=== PATIENT | female | born 1970 | race Caucasian/White ===

== ENCOUNTER 2018-07-08 07:22 | Day surgery (SDC) | payer OTHER, SELFPAY ==
[2018-07-08] VITALS (7 sets, daily range): BP systolic 118–151; BP diastolic 74–88; PULSE 62–78; RESP 16–18; TEMP 36.1–37; O2SAT 97–100; BMI 35.5
[2018-07-08 08:21] LABS: Bedside Glucose 244 mg/dL (70-110)
[2018-07-08] MEDS: Cefazolin 2 GM in 0.9% Normal Saline 100 ML IV (08:26)
--- NOTE | 2018-07-08 08:43 | RAD_ITS ---
STUDY: X-RAY - ABDOMEN/PELVIS REASON FOR EXAM: Female, 48 years old. InterStim therapy TECHNIQUE: A single fluoroscopic spot view of the sacrum is provided. COMPARISON: None. FINDINGS: A metallic stimulator projects over the left side of the sacrum. RAD/Abdomen Single View IMPRESSION: Intraoperative fluoroscopy provided. Electronically Signed: Michelet Cordova DO at 9:34 EDT Tel , Service support ,
--- NOTE | 2018-07-08 09:18 | DCINST_ITS ---
Discharge Diet: Light diet - advance as tolerated Discharge Activity: May Not Drive May shower in (days): 1 Call your doctor if your incision/area has: Continuous Slow Oozing, Sudden Increased Bleeding, Increased Pain/ Swelling, Increased Redness, Foul Smelling Discharge, Swelling at the incision site Allergies/Adverse Reactions: Allergies enalapril Adverse Reaction (Verified 07/01/18 11:06) Other COUGH metformin [From Glucophage] Adverse Reaction (Verified 07/01/18 11:06) Other Medications to take at Discharge Insulin Lispro [Humalog KwikPen] 0 unit SQ PRN PRN 07/01/18 Losartan Potassium [Cozaar] 100 mg PO DAILY 07/01/18 Vilazodone Hydrochloride [Viibryd] 40 mg PO DAILY 07/01/18 Cephalexin [Keflex] 500 mg PO Q8 #15 cap 07/08/18 Hydrocodone/Acetaminophen [[place] 5-325 Tablet] 1 ea PO Q6H PRN PRN 5 Days #10 tab 07/08/18 The following prescriptions were given: Hydrocodone/Acetaminophen [Clarence 5-325 Tablet] 1 ea PO Q6H PRN PRN 5 Days #10 tab PRN Reason: Pain Cephalexin [Keflex] 500 mg PO Q8 #15 cap Primary Care Physician: iGrish Marcus MD [Primary Care Provider] - Test Results: Test results from this visit will be discussed in further detail at your follow- up appointment, if applicable. Please Follow Up With: Malik Garcia MD When: please call to make an appointment.
--- NOTE | 2018-07-08 09:18 | PCM.OPRPT ---
Report of Operation Date of Procedure: 07/08/18 Pre-Operative Diagnosis: Urge incontinence, frequency, urgency, fecal incontinence Post-Operative Diagnosis: Same Surgery/Procedure Performed:: Stage I InterStim implant Description of Surgical Findings:: 48-year-old female with severe overactive bladder symptoms and has tried several medications with very little improvement she also has fecal incontinence but it does have a history of colitis talked about the options of management and she wants to proceed with a stage I InterStim implant to see if InterStim therapy will help her bladder control. 48-year-old female taken back to the operating room at the smooth induction of anesthesia she was placed facedown on the table in a prone position the lower back and buttocks and sacrum was prepped and draped in usual sterile fashion we then came in with fluoroscopy identified the sacrum identified the first second and third S foramen under fluoroscopy we laid down her needles and then we identified the tips of the initial spine running across went 2 cm above this on the markings of the skin came down with the needle and dropped into the S3 foramen. We then checked for stimulation we had good james and we had toe response as well no ankle rotation. We then advanced the stylette through the needle made an incision in the skin and then advanced the sheath over the stylette so that the marker was between the anterior posterior plate of the sacrum we then advanced a curved implant through the sheath until the tines were exposed we checked 012 and 3 leads and we had good james response on 1 2 and 3 3, and 0 we only had some toe but no james. After getting 3 or 4 of the leads in good position we then pulled back on the sheath the deployed the tines lead was left in place we then tunneled the lead to a small pocket in the patient's left lower back below the crest of the ischium, we then applied clean the lead and then we put the boot on and up with a temporary extension of the lead and then we tunneled the lead from the small pocket to the exit point for the temporary extension lead. Once the temporary extension lead was was completed then we closed the incision over the placement of the needle in the tailbone and then we closed the pocket. And then we applied bandages and dressings to the all the incisions we closed the incisions with interrupted subcuticular Vicryl. The stage I lead stimulator was placed we checked with fluoroscopy save the image and it would appear to be in good position will do a trial stimulation and if successful we will have the patient come back for implant of stage II. Type of Anesthesia:: Local MAC Drains: none - Admit VTE Documentation VTE Present on Admission: No VTE Mechan Device Prophylaxis: SCD's
--- NOTE | 2018-07-08 11:33 | SUR.PHASEII ---
stich inserted per dr walker- pt star well. redressed with 4x4 guaze and opsite
== END 2018-07-08 11:37 | disposition home or self-care (01) ==
LOC: SDC 07:25 → AC 07:25
PROVIDERS: Family Provider Family Medicine; PCP Family Medicine; Visit Provider Urology
PROC: (CPT 64590; principal; 2018-07-08 08:30)
DX: N39.41 Urge incontinence (principal); R15.9 Full incontinence of feces; N32.81 Overactive bladder; E66.9 Obesity, unspecified; F32.9 Major depressive disorder, single episode, unspecified; R35.0 Frequency of micturition; N39.3 Stress incontinence (female) (male); Z68.33 Body mass index [BMI] 33.0-33.9, adult
CPT/HCPCS: 64590; 74018; 76000; 82962; J7120; C1778

== ENCOUNTER 2018-07-22 13:31 | Day surgery (SDC) | payer OTHER, SELFPAY ==
[2018-07-22] VITALS (7 sets, daily range): BP systolic 119–140; BP diastolic 74–89; PULSE 68–96; RESP 16–18; TEMP 36.4–37.1; O2SAT 94–98; BMI 34.4
[2018-07-22 13:56] LABS: Bedside Glucose 228 mg/dL (70-110)
[2018-07-22] MEDS: Cefazolin 2 GM in 0.9% Normal Saline 100 ML IV (14:30)
--- NOTE | 2018-07-22 14:31 | PCM.DC.URO ---
Discharge Diet: Light diet - advance as tolerated Discharge Activity: Return to Normal Activity May shower in (days): 1 Call your doctor if your incision/area has: Continuous Slow Oozing, Sudden Increased Bleeding, Increased Pain/ Swelling, Increased Redness, Foul Smelling Discharge, Swelling at the incision site Allergies/Adverse Reactions: Allergies enalapril Adverse Reaction (Verified 07/01/18 11:06) Other COUGH metformin [From Glucophage] Adverse Reaction (Verified 07/01/18 11:06) Other Medications to take at Discharge Insulin Lispro [Humalog KwikPen] 0 unit SQ PRN PRN 07/01/18 Losartan Potassium [Cozaar] 100 mg PO DAILY 07/01/18 Vilazodone Hydrochloride [Viibryd] 40 mg PO DAILY 07/01/18 Cephalexin [Keflex] 500 mg PO Q8 #15 cap 07/08/18 Hydrocodone/Acetaminophen [[place] 5-325 Tablet] 1 ea PO Q6H PRN PRN 5 Days #10 tab 07/08/18 Cephalexin [Keflex] 500 mg PO TID #12 cap 07/22/18 The following prescriptions were given: Cephalexin [Keflex] 500 mg PO TID #12 cap Primary Care Physician: Girish Marcus MD [Primary Care Provider] - Test Results: Test results from this visit will be discussed in further detail at your follow-up appointment, if applicable. Please Follow Up With: Malik Garcia MD When: August 04 at 4 pm
--- NOTE | 2018-07-22 14:58 | PCM.OPRPT ---
Report of Operation Date of Procedure: 07/22/18 Pre-Operative Diagnosis: Overactive bladder frequency of urination urgency of urination urge incontinence and also fecal incontinence Post-Operative Diagnosis: same Surgery/Procedure Performed:: Stage II InterStim therapy implant Description of Surgical Findings:: 48-year-old female taken back to the operating room after smooth induction of anesthesia she was placed facedown in the prone position she had a stage I lead placed for InterStim therapy which was successful she had reported good control of her urine on his father's side with the results with significant subjective and objective improvement nephrogram he can proceed with stage II placement of the generator.. 48-year-old female taken back to the operating room at the smooth induction of anesthesia she was placed prone on the table the lower right back and sacral area was prepped the prior bandages were removed the temporary lead was straightened out I took some stitches out of the skin in the in the midline in the back we removed the bandages over the temporary pocket. I then infiltrated the skin over the temporary pocket made an incision in the skin and then dissected into the pocket. Until I encountered the lead extension with a temporary boot and a temporary extension the stitches in the bruit were excised and removed the boot was removed the temporary extension was then cut and the free end was was removed the lead was then inspected there was no damage or injury to the lead, and the lead was cleaned the pocket was then opened up slightly larger a space was created for the generator and the pocket then the new generator was placed into the lead until all blue is showing we tightened out tightened down the lead using the bolt provided in the kit to be at 2 clicks then the the generator was placed into the pocket with the signature [employer] side facing up and then once in good position there we then tested for impedances and there was no impedances in the generator was deemed to be functioning properly. We then closed the subcuticular stitches with interrupted Vicryl and then we closed the skin with interrupted 4-0 Monocryl bandages were placed Dermabond glue was placed on the incision site patient's anesthetic was reversed and she was taken back to the PACU in good condition she will follow-up in the office in a few weeks for checkup. Type of Anesthesia:: Local MAC Drains: none - Admit VTE Documentation VTE Present on Admission: No VTE Mechan Device Prophylaxis: SCD's
[2018-07-22] MEDS: Acetaminophen 325 MG Tablet 650 MG PO (16:37)
== END 2018-07-22 17:31 | disposition home or self-care (01) ==
LOC: SDC 13:31 → AC 13:32
PROVIDERS: Family Provider Family Medicine; PCP Family Medicine; Visit Provider Urology
PROC: (CPT 64590; principal; 2018-07-22 14:45)
DX: N32.81 Overactive bladder (principal); R35.0 Frequency of micturition; R15.9 Full incontinence of feces; E66.9 Obesity, unspecified; F32.9 Major depressive disorder, single episode, unspecified; N39.3 Stress incontinence (female) (male); I10 Essential (primary) hypertension; E11.9 Type 2 diabetes mellitus without complications; Z68.34 Body mass index [BMI] 34.0-34.9, adult; Z87.440 Personal history of urinary (tract) infections
CPT/HCPCS: 00300; 64590; 82962; J7120; C1767

== ENCOUNTER 2018-08-31 16:15 | Emergency (ER) | payer OTHER, SELFPAY ==
[2018-08-31 16:16] VITALS: BP 162/82; PULSE 68; RESP 16; TEMP 37.3; O2SAT 98; BMI 35.2
--- NOTE | 2018-08-31 16:35 | ED.VISSUMM ---
- ER Visit Summary Date of Service: 08/31/18 Chief Complaint: Controlled blood sugars and headache. History of Present Illness: The patient is a 48 F diabetic with hypertension and depression. States that her blood sugars are poorly controlled. She is also developed a headache today around 130. States the headache is not top of her head and frontal. She denies any weakness to her upper or lower extremities. She denies any speech changes. She is on no blood thinners. States she has chronic nausea from colitis but denies any vomiting, diarrhea or fever. No dysuria. Physical Examination: Middle-aged female no acute distress vital signs are stable afebrile. She does not look septic or toxic. HEENT exam unremarkable. Neck nontender. Lungs clear to auscultation bilaterally. Heart regular rate and rhythm no murmur. Abdomen soft nontender. He is moving all 4 extremities. They are neurovascularly intact. Calves are nontender without edema or cords. Neurologically she is awake and alert with no focal motor deficits. NIH score is 0. Bilateral equal symmetrical 5 out of 5 bowling ball grader strength. Dorsi plantar flexion intact. Fingertip to nose heel to garcia within normal limits. No facial droop. Normal speech. Test Results: CT brain no acute abnormality is read by the radiologist and reviewed by me. White count 9. Hemoglobin 11.6. Electrolytes unremarkable normal creatinine normal gap. Glucose 192. Repeat exam at 1915 patient is doing well. She does request something for headache she will be given IV Toradol. She also asked me to look at her left buttock she was concerned she is developing a cyst or early abscess. On the left buttock mid region there is an area that is firm indurated tissue about the size of a quarter. There is no fluctuance. There is no redness or warmth. This may be an early abscess. I did explain to her that there is nothing to drain at this time. She will be started on p.o. antibiotics. Emergency Department Course and Treatment: With IV fluids. Screening labs and a CT of her brain. Treatment Plan: Tylenol for the headache. Watch blood sugars closely. Warm soaks to the left buttock and if it gets larger it may need incise and drain. Keflex 4 times daily for 10 days. Disposition: Discharge Impression: Acute hyperglycemia with a history of insulin dependent diabetes Acute cephalgia Left buttock abscess This note was generated with [employer] dictation software. It may contain incorrect words, spelling, and punctuation that were not noted in review of the chart prior to signing ED Disposition - Plan for ED Patient: Chief Complaint: Headache Referrals: Girish Marcus MD [Primary Care Provider] -
[2018-08-31 16:51] LABS: Bedside Glucose 189 mg/dL (70-110)
[2018-08-31] MEDS: 0.9% Normal Saline 1,000 ML 1000 ML IV (16:56)
[2018-08-31 17:18] LABS: Absolute Lymphocyte Count 2.44 X10^3/ul (0.83-4.51); Absolute Neutrophil Count 6.2 X10^3/uL (2.0-7.7); Basophil# 0.03 X10^3/uL; Basophil% 0.3 % (0-1); Eosinophil# 0.19 X10^3/uL; Hematocrit 35.2 % (37-47); Hemoglobin 11.6 g/dl (12.0-15.0); Lymphocyte # 2.44 X10^3/ul (4.0); Lymphocyte % 25.5 % (19-41); Mean Corpuscular Hgb 28.3 pg (27.0-32.0); Mean Corpuscular Volume 85.9 fL (81-99); Mean Platelet Vol. 10.1 fl (6.2-12.0); Monocyte# 0.71 X10^3/uL; Monocyte% 7.4 % (0-10); Neutrophil % 64.7 % (47-70); Platelet Count 252 K/mm3 (150-450); RBC Distribution Width CV 12.9 % (11.6-14.6); RBC Distribution Width SD 40.1 fl (35.1-43.9); White Blood Count 9.6 K/mm3 (4.4-11.0)
[2018-08-31 17:22] LABS: Anion Gap 7 (5-15); BUN 10 mg/dL (7-18); BUN/Creat Ratio 13.5 RATIO (10-20); Calcium,Total 8.9 mg/dL (8.5-10.1); Chloride 98 mmol/L (98-107); Creatinine, Serum 0.74 mg/dL (0.55-1.02); EST Glomerular Filtration Rate 89 mL/min (>60); Est Glom Filt Rate - Afr Amer 107 mL/min (>60); Estimated Creatinine Clearance 76.07 ml/min; Glucose 192 mg/dL (74-106); Potassium 3.5 mmol/L (3.5-5.1); Sodium Level 134 mmol/L (136-145)
[2018-08-31 17:26] LABS: POSITIVE COUNT NO; POSITIVE DIFFERENTIAL NO; POSITIVE MORPHOLOGY NO
--- NOTE | 2018-08-31 17:28 | CT_ITS ---
STUDY: CT BRAIN WITHOUT CONTRAST REASON FOR EXAM: Female, 48 years old. Headache RADIATION DOSAGE (If Supplied By Facility): CTDIvol = ( 44.99 ) mGy, DLP = ( 779.24 ) mGycm TECHNIQUE: Transaxial CT imaging of the brain was performed without administration of intravenous contrast material. Individualized dose optimization techniques were used for this CT. COMPARISON: None. FINDINGS: There is no acute bleed or infarct. There are normal white matter tracts. The ventricles are normal in configuration. There is no hydrocephalus. The visualized paranasal sinuses are clear. The mastoid air cells are well aerated. There is no skull fracture. CT/Brain/Head without Contrast IMPRESSION: No acute intracranial abnormality. Electronically Signed: Girish Eldridge, at 17:43 EDT Tel , Service support ,
[2018-08-31] MEDS: Ondansetron 8 MG Tablet PO (19:17)
--- NOTE | 2018-08-31 19:17 | ED.DEP ---
ED Disposition - Plan for ED Patient: Disposition: Home or Assisted Living Chief Complaint: Headache Instructions: ED Cephalgia Unspecified, ED Staph Infec Abx Tx Only Prescriptions: Cephalexin [Keflex] 500 mg PO 4X/DAY #40 cap Referrals: Girish Marcus MD [Primary Care Provider] - 3-5 Days if not improving Additional Instructions: Tylenol and Motrin for headache. Plenty fluids and rest. Next para Left buttock early abscess nothing to incise and drain at this time. The antibiotic Keflex 1 pill 4 times a day plus warm soaks. If this area gets a lot larger return to have it drained.
[2018-08-31] MEDS: Ketorolac 30 MG/ML Syringe IV (19:19)
[2018-08-31 19:21] VITALS: BP 135/79; PULSE 69; RESP 16; O2SAT 99
[2018-08-31] MEDS: Cephalexin 250 MG Capsule 500 MG PO (19:28)
[2018-08-31 19:30] VITALS: BP 135/79; PULSE 69; RESP 16; O2SAT 98
== END 2018-08-31 19:43 | disposition home or self-care (01) ==
PROVIDERS: Emergency Provider Emergency Medicine; Family Provider Family Medicine; PCP Family Medicine
DX: R51 Headache (principal); L02.31 Cutaneous abscess of buttock; E11.65 Type 2 diabetes mellitus with hyperglycemia; Z79.4 Long term (current) use of insulin; I10 Essential (primary) hypertension
CPT/HCPCS: 70450; 80048; 82962; 85025; 99285; J7030

== ENCOUNTER 2020-09-10 11:05 | Day surgery (SDC) | payer OTHER, SELFPAY ==
[2020-09-10] VITALS (10 sets, daily range): BP systolic 142–163; BP diastolic 80–95; PULSE 59–80; RESP 14–18; TEMP 36.2–36.8; O2SAT 94–100; BMI 25.5
--- NOTE | 2020-09-10 07:42 | HP.PCM_ITS ---
History and Physical Date of Admission: 09/10/20 HISTORY AND PHYSICAL ? Maty Tenorio 1970 ? ? REFERRING PHYSICIAN: Self ? CHIEF COMPLAINT: Vomiting and Diarrhea ? HPI: The patient is a 50 year old female presents with complaint of right upper quadrant abdominal pain and nausea and emesis. She is more concerned about the nausea and emesis. She denies weight loss. She states that is not related to foods that she eats. She denies fevers. This started about two weeks ago. She was seen in the ED at [facility]. She underwent workup with US of the gallbladder for her abdominal pain which revealed a possible tiny stone versus polyp. She then had a HIDA scan which revealed an EF of 28%. Her past gastrointestinal history is that she had been seen by Dr. Jamil in the past for lymphocytic colitis, but states that diarrhea controlled with intermittent immodium. ? ? PAST MEDICAL HISTORY Diagnosis Date ? ADD (attention deficit disorder) ? ? Colitis ? ? Depressive disorder, not elsewhere classified ? ? Diabetes (HCC) ? ? Hypertension ? ? Other and unspecified hyperlipidemia ? ? PAST SURGICAL HISTORY Procedure Laterality Date ? DELIVERY ONLY ? 2005 ? , low cervical ? COLONOSCOP W/ OR W/O [facility] SPEC ? 11/13/13 ? ? Pilonidal cyst surgery ? ? Current Outpatient Medications Medication Sig ? LOSARTAN POTASSIUM (COZAAR ORAL) Take by mouth once daily. ? INSULIN ASPART (NOVOLOG FLEXPEN SUBCUTANEOUS) Inject subcutaneously. sliding scale ? diphenoxylate-atropine (LOMOTIL) 2.5-0.025 mg per tablet Take 2 tablets by mouth four times daily as needed. ? dicyclomine (BENTYL) 20 mg tablet Take 1 tablet by mouth three times daily before meals. ? buPROPion XL (WELLBUTRIN XL) 300 mg 24 hr tablet Take 300 mg by mouth once daily. ? Amphetamine-Dextroamphetamine (ADDERALL) 30 mg tablet Take 30 mg by mouth once daily. ? methylphenidate (RITALIN) 10 mg tablet Take 10 mg by mouth as needed. ? liraglutide (VICTOZA) 0.6 mg/0.1 mL (18 mg/3 mL) pnij Inject 0.6 mg subcutaneously once daily. ? ? ALLERGIES: effexor, Enalapril and Metformin ? PERSONAL HISTORY: Social History ? Tobacco Use ? Smoking status: Never Smoker Substance Use Topics ? Alcohol use: Yes ? ? Comment: Occasional ? Drug use: No ? FAMILY HISTORY Problem Relation Age of Onset ? Heart Mother ? ? Heart Brother ? ? Breast Cancer Mother ? ? Diabetes Mother ? ? other (IBS [Other]) Mother ? ? other (CHF [Other]) Mother ? ? other (Fibromyalgia [Other]) Mother ? ? other (fibromyalgia [Other]) Sister ? ? other (Thyroid cancer [Other]) Sister ? ? ? REVIEW OF SYSTEMS: General - denies fevers, denies anorexia, denies weight loss Cardiovascular - denies chest pain, denies history of DC Pulmonary - denies shortness of breath, denies coughing up blood Gastrointestinal - denies abdominal pain, denies hematemesis, denies blood in stools Neurological - has neuropathy and taking gabapentin for this, denies seizures, denies chronic numbness/weakness of extremities Genitourinary - denies burning with urination, denies blood in urine Hematological - denies spontaneous/prolonged bleeding Skin - denies nonhealing skin wounds Musculoskeletal - has chronic low back pain otherwise no new muscle/bone pain Endocrine - has diabetes, no thyroid problems Psychological ? denies illicit drug use, denies hallucinations ? PHYSICAL EXAMINATION: General: The patient is 50 year old female, well nourished, well hydrated in no acute distress. The patient is oriented to time, place, and person. VITALS: Blood pressure 142/68, pulse 98, temperature 36.4 ?C (97.6 ?F), temperature source Temporal, resp. rate 18, Ht: 5'3 weight 68 kg (150 lb), last menstrual period 10/29/2015, SpO2 97 %. Body mass index is 26.57 kg/m?. Head ? Normocephalic. EOM intact with sclera clear and no icterus noted. Mouth with mucus membranes moist. Neck - supple with no jugular venous distention noted. Trachea is midline. Lungs ? clear to auscultation. Normal breath sounds. No rales/rhonchi/wheezing noted. No labored breathing noted, such as retractions. No cough heard. Heart ? normal S1 and S2 auscultated. No rubs/clicks/murmurs noted. Regular rate. Abdomen ? soft and benign. Normal bowel sounds. No abdominal bruits noted. Extremities ? no calf tenderness noted. No pitting edema noted. Skin ? normal skin integrity. Neurological ? gait normal, no focal deficits noted. Psych ? calm and appropriate RADIOLOGIC STUDIES: As Noted ? ? IMPRESSION: nausea and emesis, right upper quadrant abdominal pain, abnormal HIDA scan ? PLAN: I have discussed the above with the patient. I have offered the patient the procedure of laparoscopic cholecystectomy, possible cholangiograms. I have explained the procedure to the patient. I have counseled the patient as to the risks of the procedure, including but not limited to: infection, bleeding, injury to any blood vessels/nerves, scar tissue, injury to any intrabdominal organs, injury to kidney/ureters, injury to bowel/bladder, injury to the common bile duct/biliary tree, bile leakage, intraabdominal abscess/bleeding, hernias at incisional sites, wound infections, possible open procedure, complications of anesthesia, postoperative pneumonia/cardiac problems/blood clots etc. the patient understands. ? ? The patient was offered a surgery/procedure. The provider and patient have discu ssed in detail the risk of exposure to and/or potential harm posed by the COVID- 19 virus with having a surgery/procedure at this time versus the risk of? delaying the surgery/procedure. It is not possible to know either the risk of delaying the surgery or procedure or chance of getting an infection with perfect accuracy, but a joint decision was made between the patient and the provider ?to proceed at this time with the scheduled surgery/procedure. ? The patient wishes to proceed. ? I have answered all questions to the patient?s satisfaction and the patient has no further questions. . Diagnoses: (R11.2) Nausea and vomiting, intractability of vomiting not specified, unspecified vomiting type (primary encounter diagnosis) (R10.11) RUQ abdominal pain (R94.8) Abnormal biliary HIDA scan (K52.832) Lymphocytic colitiss. ? Tegan Iraheta MD
--- NOTE | 2020-09-10 11:32 | EKG12_ITS ---
Test Reason : PREOP Blood Pressure : / mmHG Vent. Rate : 070 BPM Atrial Rate : 070 BPM P-R Int : 128 ms QRS Dur : 070 ms QT Int : 404 ms P-R-T Axes : 065 -13 053 degrees QTc Int : 436 ms Normal sinus rhythm Normal ECG Confirmed by DIEUDONNE GONZALEZ, BEAU ([id number]), editor map MARTIN MARC ([id number]) on 09/12/2020 10:27:32 AM Referred By: Tgean Iraheta Confirmed By:BEAU BRO MD
[2020-09-10] MEDS: Lactated Ringers 1,000 ML 75 ML IV ×2 (12:22→15:25)
--- NOTE | 2020-09-10 13:15 | GALL_PTH ---
PATIENT: GENIE BARRIENTOS [place] [facility] [id number] AGE/SX: 50/F ROOM: RE09/10/[address]: Dr. Tegan Iraheta MD : 1970 BED: DIS: 09/10/2020 SPEC #: [id number] RECD: 09/10/20 14:56 STATUS: DAMIAN SHIRA #: [id number] AGUS: 09/10/20 13:[address]: Tegan Iraheta DEPT: SURGICAL PATHOLOGY RECD BY: Vitaliy Thompson ENTERED: 09/11/20 07:02 SP TYPE: MOLLY MERCADO DR: Dr. Girish Marcus MD Tissues: Gallbladder, NOS Procedures: Surgery Specimen Level III HEADER OPERATION: Laparoscopic cholecystectomy with IOC PRE-OP DIAGNOSIS: RUQ abdominal pain, abnormal HIDA scan TISSUE SUBMITTED: Gallbladder MICROSCOPIC DIAGNOSIS Gallbladder, cholecystectomy: Mild chronic cholecystitis and focal cholesterolosis. A pericystic lymph node with reactive changes. No stones are identified in the container or in the gallbladder. NADIRA:ulysses 09/12/20 MICROSCOPIC DESCRIPTION Slides are reviewed. GROSS DESCRIPTION Received is one container labeled with the patient's name and designated gallbladder. The specimen consists of a gallbladder measuring 9 cm in length and up to 3 cm in diameter. The external surface is pink-crisostomo, smooth and glistening for the most part. Focally it is granular, hemorrhagic and contains cautery artifact. The gallbladder contains green-yellow mucoid bile. No stones are identified in the container or in the gallbladder. The mucosa is bile-stained and without any mass lesions. The gallbladder wall measures up to 0.2 cm in thickness. Globe Cleaner sections from the gallbladder and the cystic duct are submitted in one cassette. / NADIRA:ulysses 09/11/20 TC:3 [facility]: [id number]
[2020-09-10 13:46] LABS: Bedside Glucose 118 mg/dL (70-110)
--- NOTE | 2020-09-10 13:51 | DCINST_ITS ---
Discharge Diet: No Restrictions - drink plenty of liquids, avoid carbonated beverages as they may cause bloating which may add to discomfort/pain after surgery Discharge Activity: Return to Normal Activity, May not drive while taking narcotic pain medications. Lifting Restrictions: no lifting greater than 20 pounds Call your doctor if your incision/area has: Continuous Slow Oozing, Foul Smelling Discharge Call your doctor if you observe: Fever of 101 or Higher Additional Instructions: Recommended pain control regimen - May take 600 mg ibuprofen (Motrin) and then in 3-4 hours, may take 650 mg acetaminophen (Tylenol), then in 3-4 hours may take 600 mg ibuprofen, then in 3- 4 hours may take 650 mg acetaminophen and so on for 2-3 days May take narcotic pain medication for pain that is not controlled by above and at night for comfort through the night Leave dressings in place May get dressings wet in shower - do not scrub in the area and pat dry Do not soak - no tub baths/swimming If dressing appears to be soiled/open at one end/no longer sealed - may remove dressing but leave site uncovered (do not replace with any type of dressing) - leave steristrips in place - may get wet but do not scrub in the area and pat d ry Allergies/Adverse Reactions: Allergies enalapril Adverse Reaction (Verified 09/10/20 11:36) Other COUGH metformin [From Glucophage] Adverse Reaction (Verified 09/10/20 11:36) Other Medications to take at Discharge Losartan Potassium [Cozaar] 100 mg PO DAILY 07/01/18 Vilazodone Hydrochloride [Viibryd] 40 mg PO DAILY 07/01/18 Dextroamphetamine/Amphetamine [Adderall Xr 30 mg Capsule] 30 mg PO DAILY 09/09/20 Dicyclomine HCl [Bentyl] 10 mg PO TID 09/09/20 Diphenoxylate/Atrop [Lomotil] 2 tab PO 4X/DAY PRN PRN 09/09/20 Semaglutide [Ozempic] 1 mg SQ QWEEK 09/09/20 Hydrocodone Bitart/Apap 5-325 [Lindsay 5MG-325MG] 1 tab PO Q8H PRN PRN 5 Days #15 tab 09/10/20 The following prescriptions were given: Hydrocodone Bitart/Apap 5-325 [Lindsay 5MG-325MG] 1 tab PO Q8H PRN PRN 5 Days #15 tab PRN Reason: Pain Transmission Status: Received by KRISTINE ONE[address] Primary Care Physician: Girish Marcus MD [Primary Care Provider] - Test Results: Test results from this visit will be discussed in further detail at your follow- up appointment, if applicable. Please Follow Up With: Tegan Iraheta MD - call When: to be seen in 1-2 weeks, please call for a date and time, thank you
--- NOTE | 2020-09-10 13:53 | OP.PCM_ITS ---
Report of Operation Date of Procedure: 09/10/20 Pre-Operative Diagnosis: RUQ abdominal pain, abnormal HIDA scan Post-Operative Diagnosis: same Surgery/Procedure Performed:: laparoscopic cholecystectomy with cholangiograms Description of Surgical Findings:: normal cholangiogram, some adhesions to free surface of the gallbladder mortgage loan counselor: Nathalie Mackey Type of Anesthesia:: General Anesthesiologist: Dianelys Villareal Specimen's removed: gallbladder and contents Estimated Blood Loss (mL): < 5 ml Fluids Replaced: 1000 ml RL Description of Procedure: After informed consent was given, the patient was brought to the Operating Room. Appropriate time out protocol was followed. The patient was placed in the supine position. The patient was then placed under general endotracheal anesthesia by the anesthesia provider. The abdomen was then prepped with a sterile surgical skin preparation and sterile surgical drapes were placed. An area superior to the umbilical dimple was grasped with penetrating clamps and the skin and subcutaneous tissues were infiltrated with 0.25% marcaine with epinephrine. A skin incision was then made with a 15 blade scalpel. The anterior abdominal wall was elevated and a Veress needle was carefully inserted into the intraabdominal cavity. It was checked to be in the proper position with a normal saline drop test. A CO2 pneumoperitoneum was then created. Once this was achieved, then the Veress needle was removed and an 11mm trocar was placed in its stead. A 10mm laparoscope was then inserted into the trocar and careful attention was directed to the intraabdominal contents. There was no evidence of injury to any intraabdominal organs from insertion of the Veress needle or the trocar. Under direct visualization, a 5mm subxiphoid trocar and two lateral 5mm right subcostal trocars were placed. The skin and subcutaneous tissues at these sites were infiltrated with 0.25% marcaine with epinephrine prior to placement of these trocars. Attention was then directed to the right upper quadrant of the abdomen. Graspers were placed in the lateral trocars to grasp the distal aspect of the gallbladder and direct it cephalad and to grasp the gallbladder at Juárez?s pouch and direct it laterally. There were some adh esions to the free surface of the gallbladder and these were taken down by sharp dissection. Any bleeding was controlled with electrocoagulation. Dissection then began on the proximal gallbladder continuing down to the area of the triangle of Calot to bluntly dissect out the cystic duct. The neck of the gallbladder was identified and blunt dissection continued to dissect out a segment of the cystic duct. A clip was then placed on the neck of the gallbladder. A small ductotomy was then made. A Ranfac catheter was brought in through a separate skin incision and placed into the cystic duct. An intraoperative cholangiogram was performed under fluoroscopy. The xray revealed no lesions in the common bile duct, arborization of the biliary tree, and good flow into the duodenum. The Ranfac catheter was then removed and two clips were placed proximal to the ductotomy and the cystic duct was then transected. The cystic artery was visualized and bluntly isolated and then two clips were placed proximally and one clip distally and then it was transected between the proximal and distal clips. The gallbladder was then from the liver bed using electrocautery. Once from the liver bed, it was brought out via the umbilical port. It was then forwarded to pathology for analysis. The liver bed was carefully examined. There was no evidence of bile leakage or bleeding. The cystic duct stump and cystic artery stump had their clips intact and there was no evidence of bile leakage or bleeding. The remainder of the abdomen was grossly normal. The CO2 was released and all trocars removed intact. The periumbilical fascia was approximated with a [id number] 0 vicryl suture. All skin incision were closed with 4-0 monocryl in a subdermal fashion. Cavilol and Steristrips were used to reinforce the skin closure. Sterile dressings were applied to all wounds. Sponge, needle and instrument count was verified and correct at time of skin closure. The patient was extubated and brought to the Recovery Room in stable condition. - Complications none noted - Admit VTE Documentation VTE Present on Admission: Yes VTE Mechan Device Prophylaxis: SCD's
[2020-09-10] MEDS: Cefazolin 2 GM in 0.9% Normal Saline 100 ML IV (13:59)
--- NOTE | 2020-09-10 14:17 | RAD_ITS ---
STUDY: INTRAOPERATIVE CHOLANGIOGRAM. REASON FOR EXAM: Female, 50 years old. PAIN FLUOROSCOPY TIME (if supplied): ( 3.3 seconds ) minutes/seconds. One image was submitted. TECHNIQUE: Intraoperative cholangiogram was performed by the surgeon. Imaging was submitted. COMPARISON: None. FINDINGS: The visualized intrahepatic biliary ducts are unremarkable. The common bile duct is not dilated. No intraluminal filling defect is seen. There is free flow of contrast into the duodenum. RAD/Cholangiogram/ O R,Initial IMPRESSION: Unremarkable intraoperative Cholangiogram. Electronically Signed: Carlton Aquino, at 8:14 EDT , Service support ,
[2020-09-10] MEDS: Bupiv/Epi 0.25% 30 ML Vial (14:40)
[2020-09-10 15:46] LABS: Bedside Glucose 163 mg/dL (70-110)
[2020-09-10] MEDS: HYDROcodone Bitartrate/Apap 5/325 Tablet PO (17:27)
== END 2020-09-10 18:06 | disposition home or self-care (01) ==
LOC: SDC 11:11 → AC 11:12
PROVIDERS: PCP Family Medicine; Referring Provider Surgery; Visit Provider Surgery
PROC: (CPT 47610; principal; 2020-09-10 12:55)
DX: K81.1 Chronic cholecystitis (principal); R94.8 Abnormal results of function studies of other organs and systems; K52.832 Lymphocytic colitis; R10.11 Right upper quadrant pain; R11.2 Nausea with vomiting, unspecified; F32.9 Major depressive disorder, single episode, unspecified; I10 Essential (primary) hypertension; E11.9 Type 2 diabetes mellitus without complications; E78.5 Hyperlipidemia, unspecified; F98.8 Other specified behavioral and emotional disorders with onset usually occurring in childhood and adolescence; Z79.899 Other long term (current) drug therapy
CPT/HCPCS: 00790; 47563; 74300; 76000; 82962; 88304; 93005; J7120; J2405